=== PATIENT | female | born 1970 | race Caucasian/White ===

== ENCOUNTER → 2024-03-28 08:01 | Outpatient (REF) | payer BC, SELFPAY | LOC: WDC 08:01 | PROVIDERS: ATTENDING PHYSICIAN Obstetrics & Gynecology; FAMILY PHYSICIAN Family Medicine | DX: Z12.31 Encounter for screening mammogram for malignant neoplasm of breast (principal) | CPT/HCPCS: 77063; 77067 ==

== ENCOUNTER → 2024-10-14 08:14 | Outpatient (REF) | payer OTHER, SELFPAY | LOC: HWRAD 08:14 | PROVIDERS: ATTENDING PHYSICIAN Obstetrics & Gynecology; FAMILY PHYSICIAN Family Medicine | DX: N93.9 Abnormal uterine and vaginal bleeding, unspecified (principal) | CPT/HCPCS: 76830; 76856 ==

== ENCOUNTER → 2024-11-09 10:01 | Outpatient (REF) | payer OTHER, SELFPAY | LOC: PAVMRI 10:01 | PROVIDERS: ATTENDING PHYSICIAN Obstetrics & Gynecology; FAMILY PHYSICIAN Family Medicine | DX: D39.11 Neoplasm of uncertain behavior of right ovary (principal); R93.89 Abnormal findings on diagnostic imaging of other specified body structures | CPT/HCPCS: 72197; A9575 ==

== ENCOUNTER 2025-02-05 06:22 | Day surgery (SDC) | payer OTHER, SELFPAY ==
[2025-01-27 13:55] VITALS: BMI 27.3
[2025-01-27 14:15] LABS: Hematocrit 39.9 % (37.0-47.0); Hemoglobin 13.3 g/dL (12.0-16.0); Mean Corp Hgb Conc. 33.3 g/dL (33.0-37.0); Mean Corpuscular Volume 90.9 fL (81.0-99.0); Nucleated Red Blood Cells % 0 %; Platelet Count 257 10^3/uL (130-400); Red Cell Dist. Width 13.2 % (11.5-14.5)
[2025-01-27 14:35] LABS: Blood Urea Nitrogen 9 mg/dl (7-17); Calcium 9.6 mg/dl (8.4-10.2); Carbon Dioxide 29 mmol/L (22-30); Chloride 105 mmol/L (98-107); Estimated Creatinine Clearance 87 ml/min; Glucose 89 mg/dl (70-99); Potassium 4.2 mmol/L (3.5-5.1); Sodium 138 mmol/L (135-145); eGFR > 60.00
--- NOTE | 2025-01-28 16:50 | PTCARENOTE ---
Abnormal ECG from 01/27/25 was reviewed by ; no further actions requested.
[2025-02-05] VITALS (9 sets, daily range): BP systolic 121–143; BP diastolic 58–80; BMI 27.3
[2025-02-05] MEDS: NEURONTIN 300 MG PO (07:52)
[2025-02-05] MEDS: TYLENOL 1000 MG PO (07:52)
[2025-02-05] MEDS: NORMOSOL-R/PLASMALYTE-A 1000 IV (07:52)
[2025-02-05] MEDS: DILAUDID 0.25 MG IV (12:37)
--- NOTE | 2025-02-05 20:30 | W.IMMPOSTOP ---
Addendum entered and electronically signed by Sarah Mejia DO 02/05/25 23:48:
Adhesions of bladder noted to the cervix.
Normal appearing uterus.
Addendum entered and electronically signed by Sarah Mejia DO 02/05/25 23:33:
Adhesions noted in midabdominal plane in LUQ (not RUQ)
Original Note:
Surgical Immed Post Op Note
-
Primary Surgeon: Sarah Mejia DO
Assisting Surgeon: Alethea Mesa PA-C
Pre-op Diagnosis: Left ovarian dermoid cyst, right ovarian complex cyst, fibroid uterus, postmenopausal bleeding, pelvic pressure/pain
Post-op Diagnosis: same; abdominal and pelvic adhesions (extensive)
Procedure Performed: Robotic total laparoscopic hysterectomy, bilateral salpingo-oopherectomy, extensive lysis adhesions
Anesthesia Type: general ET Dr. Thomas
Specimen / Cultures: uterus, cervix, bilateral fallopian tubes and bilateral ovaries.
Estimated Blood Loss: 10ml
Urine output: 400ml Clear yellow urine
Complications: none
Operative Findings: Adhesions noted midabdominal plane in RUQ and midabdomen extending toward midclavicular line on left.
Left ovarian adhesions to posterior uterus. Left ovary with small complex cyst, approx 2 cm and right ovary with complex cyst approx 3cm.
Counts correct times 2.
== END 2025-02-05 13:43 | disposition home or self-care (01) ==
LOC: SDS 06:22
PROVIDERS: ATTENDING PHYSICIAN Obstetrics & Gynecology; FAMILY PHYSICIAN Family Medicine
DX: D25.9 Leiomyoma of uterus, unspecified (principal); D27.1 Benign neoplasm of left ovary; D27.0 Benign neoplasm of right ovary; N85.8 Other specified noninflammatory disorders of uterus; R10.20 Pelvic and perineal pain unspecified side; N95.0 Postmenopausal bleeding
CPT/HCPCS: 58571; 36415; 80048; 85025; 86850; 86900; 86901; 88307; 93005

== ENCOUNTER → 2025-04-03 08:06 | Outpatient (REF) | payer OTHER, SELFPAY | LOC: WDC 08:06 | PROVIDERS: ATTENDING PHYSICIAN Obstetrics & Gynecology; FAMILY PHYSICIAN Family Medicine | DX: Z12.31 Encounter for screening mammogram for malignant neoplasm of breast (principal) | CPT/HCPCS: 77063; 77067 ==